=== PATIENT | female | born 1965 | race Caucasian/White ===

== ENCOUNTER 2021-08-29 01:30 | Inpatient (IN) | payer MEDICARE, OTHER ==
[~2021-08-29] VITALS: Ht 167.6 cm; Wt 126.6 kg
[2021-08-29 15:48] LABS: HEMOGLOBIN 8.1 gm/dl (12.3-15.3); RED BLOOD COUNT 2.87 M/UL (4.00-5.10); WHITE BLOOD COUNT 4.7 K/UL (4.5-11.0)
[2021-08-29] MEDS ORDERED: CARVEDILOL3.125 MG PO (16:27)
[2021-08-29] MEDS ORDERED: LACTULOSE10 GM/15 M PO (16:28)
[2021-08-29] MEDS ORDERED: DULOXETINE HCL60 MG PO (16:28)
[2021-08-29] MEDS ORDERED: KLONOPIN0.5 MG PO (16:29)
[2021-08-29] MEDS ORDERED: LISINOPRIL20 MG PO (16:29)
[2021-08-29] MEDS ORDERED: LEVOTHYROXINE50 MCG PO (16:30)
[2021-08-29] MEDS ORDERED: HUMALOG100 UNIT/1 SQ (16:30)
[2021-08-29] MEDS ORDERED: MORPHINE SULFAT15 MG PO (16:31)
[2021-08-29] MEDS ORDERED: GABAPENTIN100 MG PO (16:31)
[2021-08-29] MEDS ORDERED: MS CONTIN30 MG PO (16:32)
[2021-08-29] MEDS ORDERED: LASIX40 MG PO ×2 (16:33)
[2021-08-29] MEDS ORDERED: PROTONIX 40 MG40 M1 PO (16:33)
[2021-08-29] MEDS ORDERED: FERROUS SULFAT324 MG PO (16:34)
[2021-08-29] MEDS ORDERED: HYDRALAZINE HC100 MG PO (16:34)
[2021-08-29] MEDS ORDERED: PLAVIX75 MG PO (16:35)
[2021-08-29] MEDS ORDERED: FOLIC ACID1 MG PO (16:35)
[2021-08-29] MEDS ORDERED: DOCUSATE SODIU100 MG PO (16:36)
[2021-08-29] MEDS ORDERED: EPOETIN ALFA INJ (16:37)
[2021-08-29] MEDS ORDERED: MAG-OX 400 TAB400 MG PO (16:38)
[2021-08-29] MEDS ORDERED: SPIRONOLACTONE25 MG PO (16:38)
[2021-08-29] MEDS ORDERED: MELATONIN3 MG PO (16:38)
[2021-08-29] MEDS ORDERED: NICODERM CQ1 EAC1 TD (16:39)
[2021-08-30 06:58] LABS: WHITE BLOOD COUNT 4.3 K/UL (4.5-11.0)
[2021-08-30 07:05] LABS: RED BLOOD COUNT 2.54 M/UL (4.00-5.10)
[2021-08-30 20:04] LABS: HEMOGLOBIN 8.9 gm/dl (12.3-15.3)
[2021-08-31 02:39] LABS: HEMOGLOBIN 9.7 gm/dl (12.3-15.3); WHITE BLOOD COUNT 4.4 K/UL (4.5-11.0)
[2021-08-31 02:42] LABS: RED BLOOD COUNT 3.43 M/UL (4.00-5.10)
[2021-09-01 04:16] LABS: HEMOGLOBIN 10.7 gm/dl (12.3-15.3)
[2021-09-01 04:18] LABS: RED BLOOD COUNT 3.82 M/UL (4.00-5.10); WHITE BLOOD COUNT 7.4 K/UL (4.5-11.0)
[2021-09-02 03:24] LABS: HEMOGLOBIN 9.4 gm/dl (12.3-15.3)
[2021-09-02 03:28] LABS: RED BLOOD COUNT 3.29 M/UL (4.00-5.10); WHITE BLOOD COUNT 4.7 K/UL (4.5-11.0)
[2021-09-03 03:31] LABS: HEMOGLOBIN 8.4 gm/dl (12.3-15.3); RED BLOOD COUNT 2.99 M/UL (4.00-5.10)
[2021-09-03 03:39] LABS: WHITE BLOOD COUNT 3.3 K/UL (4.5-11.0)
[2021-09-04 03:00] LABS: HEMOGLOBIN 8.7 gm/dl (12.3-15.3); RED BLOOD COUNT 3.06 M/UL (4.00-5.10); WHITE BLOOD COUNT 3.4 K/UL (4.5-11.0)
[2021-09-05 03:36] LABS: HEMOGLOBIN 8.6 gm/dl (12.3-15.3); RED BLOOD COUNT 2.98 M/UL (4.00-5.10); WHITE BLOOD COUNT 3.3 K/UL (4.5-11.0)
[2021-09-05] MEDS ORDERED: INVANZ 1 GM VIAL1 GM IM (08:23)
== END 2021-09-05 16:03 | DRG 682 ==
LOC: PROG CARE 14:22
PROVIDERS: Family Medicine; Internal Medicine; Internal Medicine Nephrology; ADMIT Internal Medicine
PROC: 30233N1 Transfusion of Nonautologous Red Blood Cells into Peripheral Vein, Percutaneous Approach (ICD-10-PCS; principal; 2021-08-30)
PROC: B24BZZ4 Ultrasonography of Heart with Aorta, Transesophageal (ICD-10-PCS; 2021-08-30)
DX: N17.9 Acute kidney failure, unspecified (principal); G93.41 Metabolic encephalopathy; J96.21 Acute and chronic respiratory failure with hypoxia; Z20.822 Contact with and (suspected) exposure to COVID-19; J96.22 Acute and chronic respiratory failure with hypercapnia; K76.7 Hepatorenal syndrome; N39.0 Urinary tract infection, site not specified; Z16.12 Extended spectrum beta lactamase (ESBL) resistance; I13.0 Hypertensive heart and chronic kidney disease with heart failure and stage 1 through stage 4 chronic kidney disease, or unspecified chronic kidney disease; B19.10 Unspecified viral hepatitis B without hepatic coma; E87.2 Acidosis; D61.818 Other pancytopenia; E87.1 Hypo-osmolality and hyponatremia; I50.9 Heart failure, unspecified; F11.10 Opioid abuse, uncomplicated; N18.4 Chronic kidney disease, stage 4 (severe); D63.1 Anemia in chronic kidney disease; K72.90 Hepatic failure, unspecified without coma; B19.20 Unspecified viral hepatitis C without hepatic coma; K74.60 Unspecified cirrhosis of liver; D50.9 Iron deficiency anemia, unspecified; E87.5 Hyperkalemia; E03.9 Hypothyroidism, unspecified; B96.20 Unspecified Escherichia coli [E. coli] as the cause of diseases classified elsewhere; Z79.4 Long term (current) use of insulin; Z88.5 Allergy status to narcotic agent; Z88.0 Allergy status to penicillin; Z91.040 Latex allergy status
CPT/HCPCS: ECHO; 36415; 36600; 71045; 80048; 80053; 80307; 81001; 82140; 82272; 82570; 82607; 82728; 82746; 82803; 82962; 83540; 83550; 83605; 83735; 83880; 84132; 84300; 84439; 84443; 85014; 85018; 85025; 85027; 85610; 86850; 86900; 86901; 86920; 87077; 87086; 87186; 93005; 93306; 94640; 94660; 94760; 97110; 97110-GP-CQ; 97162; 97530-GP-CQ; C9113; J0360; J0610; J0696; J1644; J1756; J1956; J2185; J2270; J2310; J2354; J7030; J7050; P9016; P9047; U0002